=== PATIENT | male | born 1955 | race Caucasian/White ===

== ENCOUNTER 2017-12-05 21:27 | Inpatient (IN) | payer BC ==
[~2017-12-05] VITALS: Ht 182.9 cm; Wt 123.5 kg
[2017-12-05] VITALS (55 sets, daily range): BP systolic 137–150; BP diastolic 81–92; PULSE 84–88; TEMP 98.8; O2SAT 92–97
[2017-12-05 21:44] LABS: BASO # 0.1 (0.0-0.2); BASO % 0.7 % (0.0-2.0); EOS # 0.3 (0.0-0.7); EOS % 3.3 % (0-4.0); GRAN # 4.4 (1.4-6.5); GRAN % 58.8 % (42.2-75.2); HEMOGLOBIN 15.5 g/dl (13.5-18.0); LYMPH # 2.1 (1.2-3.4); LYMPH % 28.2 % (20.0-51.0); MEAN CELL VOLUME 89 fl (80.0-100.0); MEAN CORPUSCULAR HEMOGLOBIN 31 pg (27.0-31.0); MEAN CORPUSCULAR HGB CONC 34 g/dl (33.0-37.0); MEAN PLATELET VOLUME 11.8 fl (7.4-10.4); MONO # 0.7 (0.1-0.6); MONO % 8.7 % (1.7-9.3); PLATELET COUNT 167 K/mm3 (130-400); RED BLOOD COUNT 5.06 M/mm3 (4.20-5.60); REDCELL DISTRIBUTION WIDTH-CV 13.4 % (11.5-14.5)
[2017-12-05 21:47] LABS: PROTHROMBIN TIME 11.5 SECONDS (9.7-12.8)
[2017-12-05 21:50] LABS: ALBUMIN 3.9 gm/dL (3.5-5.0); BILIRUBIN,TOTAL 0.5 mg/dL (0.0-1.0); CALCIUM 9.2 mg/dL (8.4-10.2); CREATININE, serum 0.83 mg/dL (0.66-1.25); PARTIAL THROMBOPLASTIN TIME 28.3 SECONDS (26.0-37.0); POTASSIUM 3.5 mmol/L (3.4-5.0); TOTAL PROTEIN 7.3 gm/dL (6.4-8.2)
[2017-12-05 22:04] LABS: TROPONIN-I 0.116 ng/mL (0.000-0.034)
[2017-12-06] VITALS (848 sets, daily range): BP systolic 102–152; BP diastolic 51–92; PULSE 54–88; TEMP 97.9–98.8; O2SAT 89–98
[2017-12-06 03:15] LABS: HEMATOCRIT 45.5 % (42.0-52.0); HEMOGLOBIN 15.6 g/dl (13.5-18.0); MEAN CELL VOLUME 89 fl (80.0-100.0); MEAN CORPUSCULAR HEMOGLOBIN 31 pg (27.0-31.0); MEAN CORPUSCULAR HGB CONC 34 g/dl (33.0-37.0); MEAN PLATELET VOLUME 12.3 fl (7.4-10.4); PLATELET COUNT 155 K/mm3 (130-400); RED BLOOD COUNT 5.11 M/mm3 (4.20-5.60); REDCELL DISTRIBUTION WIDTH-CV 13.3 % (11.5-14.5)
[2017-12-06 03:23] LABS: CALCIUM 8.7 mg/dL (8.4-10.2); CREATININE, serum 0.76 mg/dL (0.66-1.25); POTASSIUM 3.5 mmol/L (3.4-5.0)
[2017-12-06] MEDS ORDERED: TOPROL XL100 MG PO (05:43)
[2017-12-06] MEDS ORDERED: COLACE 100100 MG/CAP PO (05:45)
[2017-12-06] MEDS ORDERED: TYLENOL 500MG500 MG PO (05:46)
[2017-12-06] MEDS ORDERED: ARNUITY200 IH (05:49)
[2017-12-06 09:51] LABS: CHOLESTEROL RISK RATIO 5.3
[2017-12-07 00:20] VITALS: BP 102/51; PULSE 65; TEMP 98.8
[2017-12-07 03:31] VITALS: BP 109/59; PULSE 77; TEMP 97.4
[2017-12-07 04:02] VITALS: BP 109/59; PULSE 77; TEMP 97.4
[2017-12-07 08:19] VITALS: BP 115/63; PULSE 62; TEMP 98.2
[2017-12-07 08:39] LABS: BASO % 0.6 % (0.0-2.0); EOS # 0.3 (0.0-0.7); EOS % 3.8 % (0-4.0); GRAN # 4.6 (1.4-6.5); GRAN % 65.3 % (42.2-75.2); HEMATOCRIT 40.6 % (42.0-52.0); LYMPH # 1.6 (1.2-3.4); MEAN CELL VOLUME 91 fl (80.0-100.0); MEAN CORPUSCULAR HGB CONC 34 g/dl (33.0-37.0); MEAN PLATELET VOLUME 11.9 fl (7.4-10.4); MONO # 0.5 (0.1-0.6); MONO % 7.2 % (1.7-9.3); PLATELET COUNT 152 K/mm3 (130-400); RED BLOOD COUNT 4.46 M/mm3 (4.20-5.60); REDCELL DISTRIBUTION WIDTH-CV 13.5 % (11.5-14.5)
[2017-12-07 08:41] LABS: HEMOGLOBIN 13.6 g/dl (13.5-18.0); MEAN CORPUSCULAR HEMOGLOBIN 30 pg (27.0-31.0)
[2017-12-07 08:48] LABS: ALBUMIN 3.6 gm/dL (3.5-5.0); BILIRUBIN,TOTAL 1.1 mg/dL (0.0-1.0); CALCIUM 8.6 mg/dL (8.4-10.2); CREATININE, serum 0.83 mg/dL (0.66-1.25); POTASSIUM 3.7 mmol/L (3.4-5.0); TOTAL PROTEIN 6.8 gm/dL (6.4-8.2)
[2017-12-07] MEDS ORDERED: PLAVIX 75MG TAB75 MG PO (11:13)
[2017-12-07] MEDS ORDERED: LIPITOR 80MG80 MG PO (11:14)
[2017-12-07] MEDS ORDERED: IMDUR 30MG30 MG/TAB PO (11:15)
[2017-12-07] MEDS ORDERED: ASPIRIN E.C. 8181 MG PO (11:15)
[2017-12-07] MEDS ORDERED: TOPROL XL 25MG25 MG PO (11:15)
[2017-12-07 11:16] VITALS: BP 104/66; PULSE 58; TEMP 968.1; TEMP 98.1
[2017-12-07] MEDS ORDERED: NITROSTAT0.4 MG/TAB SL (11:20)
== END 2017-12-07 14:15 | disposition home or self-care (01) | DRG 247 ==
LOC: COL.ER 21:27 → ICU 23:18 → MEDICAL 23:18 → ICU 12-06 17:15 → MEDICAL 12-06 17:15
PROVIDERS: Emergency Medicine; Internal Medicine Interventional Cardiology; Nurse Practitioner Family
PROC: 0270346 Dilation of Coronary Artery, One Artery, Bifurcation, with Drug-eluting Intraluminal Device, Percutaneous Approach (ICD-10-PCS; principal; 2017-12-05)
PROC: 02703ZZ Dilation of Coronary Artery, One Artery, Percutaneous Approach (ICD-10-PCS; 2017-12-05)
PROC: B2111ZZ Fluoroscopy of Multiple Coronary Arteries using Low Osmolar Contrast (ICD-10-PCS; 2017-12-05)
PROC: B2151ZZ Fluoroscopy of Left Heart using Low Osmolar Contrast (ICD-10-PCS; 2017-12-05)
DX: I21.19 ST elevation (STEMI) myocardial infarction involving other coronary artery of inferior wall (principal); I25.10 Atherosclerotic heart disease of native coronary artery without angina pectoris; I10 Essential (primary) hypertension; E66.9 Obesity, unspecified; Z68.36 Body mass index [BMI] 36.0-36.9, adult
CPT/HCPCS: C1725; C1760; C1769; C1874; C1887; C1894; C9600; J1327; J1644; J2250; J2270; J3010; J7050; Q9967

== ENCOUNTER 2021-11-04 05:46 | Day surgery (SDC) | payer BC ==
[2021-11-04] VITALS (13 sets, daily range): BP systolic 103–176; BP diastolic 58–96; PULSE 47–57; TEMP 98.4
[~2021-11-04] VITALS: Ht 183 cm; Wt 123.5 kg
[~2021-11-04 05:46] MED LIST: ADVIL200 MG PO; ARNUITY200 IH; ASPIRIN 81M81 MG/TA2 PO; ASPIRIN E.C. 8181 MG PO; COLACE 100100 MG/CAP PO; IMDUR 30MG30 MG/TAB PO; IMDUR 60MG60 MG/TAB PO; LIPITOR 80MG80 MG PO; NITROSTAT0.4 MG/TAB SL; PLAVIX 75MG TAB75 MG PO; RANEXA1000 MG PO; SINGULAIR 110 MG/TAB PO; SYNTHROID0.075 MG/T PO; TOPROL XL 25MG25 MG PO; TOPROL XL100 MG PO; TYLENOL 500MG500 MG PO
[2021-11-04 07:10] LABS: HEMOGLOBIN 14.8 g/dl (13.5-18.0); MEAN CELL VOLUME 86 fl (80.0-100.0); MEAN CORPUSCULAR HEMOGLOBIN 29 pg (27.0-31.0); MEAN CORPUSCULAR HGB CONC 34 g/dl (33.0-37.0); MEAN PLATELET VOLUME 12.6 fl (7.4-10.4); PLATELET COUNT 161 K/mm3 (130-400); RED BLOOD COUNT 5.14 M/mm3 (4.20-5.60); REDCELL DISTRIBUTION WIDTH-CV 13.3 % (11.5-14.5)
[2021-11-04 07:22] LABS: INR 1.1 (0.8-3.0); PROTHROMBIN TIME 12.3 SECONDS (9.7-12.8)
[2021-11-04 07:25] LABS: PARTIAL THROMBOPLASTIN TIME 33.2 SECONDS (26.0-37.0)
[2021-11-04 07:27] LABS: CALCIUM 9.6 mg/dL (8.4-10.2); CREATININE, serum 0.93 mg/dL (0.72-1.25); POTASSIUM 3.4 mmol/L (3.5-4.5)
[2021-11-04] MEDS ORDERED: ISMO 20MG20 MG PO (07:49)
[2021-11-04] MEDS ORDERED: PROTONIX 40MG T40 MG PO (07:50)
[2021-11-04] MEDS ORDERED: NORVASC 10MG10 MG PO (07:51)
[2021-11-04] MEDS ORDERED: TOPROL XL 50MG50 MG PO (07:53)
[2021-11-04] MEDS ORDERED: HCTZ 25MG TAB25 MG PO (07:58)
--- NOTE | 2021-11-04 08:06 | NUR ---
PRE PROCEDURE ASSESSMENT COMPLETED IN [facility]. SEE MERGE FOR ALL INTRAPROCEDDURAL MEDICATION ADMINISTRATION TIMES/DOSAGES AND INTRA/POST SEDATION ASSESSMENTS.
--- NOTE | 2021-11-04 08:29 | NUR ---
Pt to procedure,alberto gonzales rn.
--- NOTE | 2021-11-04 13:10 | NUR ---
All air rleased from band in 2-3 ml incriments.no bleeding at right radial site observed.
--- NOTE | 2021-11-04 13:35 | NUR ---
Discharge instructions given to pt.pt verbalizes understanding.INT removed,catheter tip intact.Dressing to right radial wrist observed clean,dry,intact and soft to touch.Pt escorted out via wheelchair by this nurse.
== END 2021-11-04 14:03 ==
LOC: COL.CAR 05:46
PROVIDERS: Internal Medicine Cardiovascular Disease
DX: I25.10 Atherosclerotic heart disease of native coronary artery without angina pectoris (principal); I25.2 Old myocardial infarction
CPT/HCPCS: C1769; J1644; J2250; J3010; Q9967